=== PATIENT | female | born 1945 | race Caucasian/White ===

== ENCOUNTER 2020-11-01 11:30 | Emergency (ER) | payer MEDICARE, OTHER ==
[2020-11-01 12:45] LABS: BASOPHIL 0.4 % (0-2); EOSINOPHIL 0.2 % (0-7); MCH 28.6 pg (25.0-31.0); MCV 92.5 fL (78.0-100.0); MONOCYTE 8.3 % (0-12); MPV 8.9 fL (6.0-9.5); NEUTROPHIL 66.5 % (41-80); NRBC 0; PLT 203 K/uL (150-400); RBC 4.54 M/uL (4.20-5.40); RDW 13.1 % (11.5-14.0); WBC 5.1 K/uL (4.0-10.5)
[2020-11-01 13:02] LABS: CORONAVIRUS 2019 SARS-COV-2 POSITIVE (NEGATIVE); INFLUENZA A NAA NEGATIVE (NEGATIVE)
[2020-11-01 13:08] LABS: LACTIC ACID 1.1 mmol/L (0.4-1.9)
[2020-11-01 13:09] LABS: LYMPHOCYTE 24.2 % (15-48)
[2020-11-01 13:15] LABS: BILIRUBIN - TOTAL 0.6 mg/dL (0.2-1.0); BUN/CREAT RATIO (CALC) 22.2 RATIO; CREATININE 0.63 mg/dL (0.51-0.95); GLOBULIN (CALCULATION) 4.2 g/dL; POTASSIUM 3.7 mmol/L (3.5-5.1); TOTAL PROTEIN 7.2 g/dL (6.4-8.2)
[2020-11-01] MEDS ORDERED: ZOFRAN4 M1 PO (18:19)
== END 2020-11-01 20:13 | disposition home or self-care (01) ==
LOC: FER 11:30
PROVIDERS: Emergency Medicine
DX: U07.1 COVID-19 (principal); R11.2 Nausea with vomiting, unspecified; E86.0 Dehydration; I10 Essential (primary) hypertension; J44.9 Chronic obstructive pulmonary disease, unspecified; E07.9 Disorder of thyroid, unspecified; Z87.891 Personal history of nicotine dependence; Z85.41 Personal history of malignant neoplasm of cervix uteri; Z88.1 Allergy status to other antibiotic agents; Z88.5 Allergy status to narcotic agent; Z88.8 Allergy status to other drugs, medicaments and biological substances; Z79.899 Other long term (current) drug therapy
CPT/HCPCS: 36415; 36600; 71045; 80053; 82150; 82803; 83605; 84145; 84484; 85025; 87040; 93005; J2405; J7030; J7050; M0239; U0002

== ENCOUNTER 2020-11-10 16:29 | Emergency (ER) | payer MEDICARE, OTHER ==
[~2020-11-10 16:29] MED LIST: ZOFRAN4 M1 PO
[2020-11-10 17:05] LABS: BASOPHIL 0.2 % (0-2); EOSINOPHIL 0.1 % (0-7); HCT 42.2 % (37.0-47.0); HGB 13.4 g/dl (12.5-16.0); LYMPHOCYTE 13.8 % (15-48); MCH 28.5 pg (25.0-31.0); MCHC 31.8 g/dL (32.0-36.0); MCV 89.8 fL (78.0-100.0); MONOCYTE 7.9 % (0-12); MPV 8.8 fL (6.0-9.5); NEUTROPHIL 77.3 % (41-80); NRBC 0; PLT 396 K/uL (150-400); RDW 13.1 % (11.5-14.0); WBC 12.3 K/uL (4.0-10.5)
[2020-11-10 18:07] LABS: ALBUMIN 3.3 g/dL (3.4-5.0); BILIRUBIN - TOTAL 0.7 mg/dL (0.2-1.0); BUN/CREAT RATIO (CALC) 14.8 RATIO; CREATININE 0.61 mg/dL (0.51-0.95); GLOBULIN (CALCULATION) 4.5 g/dL; POTASSIUM 4.2 mmol/L (3.5-5.1); TOTAL PROTEIN 7.8 g/dL (6.4-8.2)
[2020-11-10 18:13] LABS: PRO-BNP 92 pg/mL (<450)
[2020-11-10] MEDS ORDERED: MEDROL 4MG DOSEP4 MG PO (19:20)
[2020-11-10] MEDS ORDERED: PREDNISONE 20MG20 MG PO (19:24)
== END 2020-11-10 19:57 | disposition home or self-care (01) ==
LOC: FER 16:29
PROVIDERS: Emergency Medicine
DX: U07.1 COVID-19 (principal); J12.82 Pneumonia due to coronavirus disease 2019; M94.0 Chondrocostal junction syndrome [Tietze]; R00.0 Tachycardia, unspecified; E66.9 Obesity, unspecified; R60.0 Localized edema; J44.9 Chronic obstructive pulmonary disease, unspecified; I10 Essential (primary) hypertension; Z99.81 Dependence on supplemental oxygen; Z88.1 Allergy status to other antibiotic agents; Z88.5 Allergy status to narcotic agent; Z88.8 Allergy status to other drugs, medicaments and biological substances; Z87.891 Personal history of nicotine dependence; Z79.899 Other long term (current) drug therapy
CPT/HCPCS: 36415; 36600; 71045; 71275; 80053; 82803; 83880; 84484; 85025; 85379; 93005; Q9967